=== PATIENT | male | born 1975 | race African-American/Black ===

== ENCOUNTER 2018-10-29 12:48 | Emergency (ER) | payer BC ==
[2018-10-29] MEDS ORDERED: Ketorolac 60 MG/2 ML SDV IM ONE (13:57)
--- NOTE | 2018-10-29 14:00 | EDM.PDOC ---
ED HPI GENERAL MEDICAL PROBLEM - General Chief Complaint: Lower Extremity Injury/Pain Stated Complaint: RT FOOT SWOLLEN Time Seen by Provider: 10/29/18 13:57 Source of Information: Reports: Patient - History of Present Illness INITIAL COMMENTS - FREE TEXT/NARRATIVE: HISTORY AND PHYSICAL: History of present illness: []Patient presents with right great toe pain 8 out of 10 injury or trauma Review of systems: As per history of present illness and below otherwise all systems reviewed and negative. Past medical history: As per history of present illness and as reviewed below otherwise noncontributory. Surgical history: As per history of present illness and as reviewed below otherwise noncontributory. Social history: No reported history of drug or alcohol abuse. Family history: As per history of present illness and as reviewed below otherwise noncontributory. Physical exam: HEENT: Atraumatic, normocephalic, pupils reactive, negative for conjunctival pallor or scleral icterus, mucous membranes moist, throat clear, neck supple, nontender, trachea midline. Lungs: Clear to auscultation, breath sounds equal bilaterally, chest nontender. Heart: S1S2, regular, negative for clicks, rubs, or JVD. Abdomen: Soft, nondistended, nontender. Negative for masses or hepatosplenomegaly. Negative for costovertebral tenderness. Pelvis: Stable nontender. Genitourinary: Deferred. Rectal: Deferred. Extremities: Atraumatic, negative for cords or calf pain. Neurovascular unremarkable. Neuro: Awake, alert, oriented. Cranial nerves II through XII unremarkable. Cerebellum unremarkable. Motor and sensory unremarkable throughout. Exam nonfocal. Diagnostics: [TBC uric acid Right foot 3 views ] Therapeutics: [ Ertl 60 IM cholcrys Indocin Impression: [ acute gout] Definitive disposition and diagnosis as appropriate pending reevaluation and review of above. R Great Toe Pain Score (Numeric/FACES): 8 - Related Data Allergies Allergy/AdvReac Type Severity Reaction Status Date / Time No Known Allergies Allergy Verified 10/29/18 12:58 Home Meds: Home Meds . [No Known Home Meds] 10/29/18 [History] Past Medical History - Past Health History Medical/Surgical History: Denies Medical/Surgical History HEENT History: Reports: None Cardiovascular History: Reports: Heart Murmur, Other (See Below) Other Cardiovascular History: as a child Respiratory History: Reports: Other (See Below) Other Respiratory History: pleurisy Gastrointestinal History: Reports: Other (See Below) Other Gastrointestinal History: hernia lower abd Psychiatric History: Reports: None - Infectious Disease History Infectious Disease History: Reports: None - Past Surgical History GI Surgical History: Reports: Hernia, Inguinal Social & Family History - Family History Family Medical History: Noncontributory Endocrine/Metabolic: Reports: Diabetes, type II - Tobacco Use Smoking Status *Q: Never Smoker - Caffeine Use Caffeine Use: Reports: None - Recreational Drug Use Recreational Drug Use: No Review of Systems - Review of Systems Review Of Systems: See Below ED EXAM, GENERAL - Physical Exam Exam: See Below Course - Vital Signs Last Recorded V/S: Last Vital Signs Temp 97.1 F 10/29/18 12:56 Pulse 90 10/29/18 12:56 Resp 16 10/29/18 12:56 BP 119/74 10/29/18 12:56 Pulse Ox 96 10/29/18 12:56 - Orders/Labs/Meds Orders: Active Orders 24 hr Category Date Time Status Foot Comp Min 3V Rt [CR] Stat Exams 10/29/18 12:50 Taken Ketorolac [Toradol] Med 10/29/18 13:57 Once 60 mg IM ONETIME ONE Labs: Laboratory Tests 10/29/18 10/29/18 Range/Units 13:04 13:04 WBC 6.26 (4.0-11.0) K/uL RBC 5.69 (4.50-5.90) M/uL Hgb 15.3 (13.0-17.0) g/dL Hct 45.8 (38.0-50.0) % MCV 80.5 (80.0-98.0) fL MCH 26.9 L (27.0-32.0) pg MCHC 33.4 (31.0-37.0) g/dL RDW Std Deviation 41.6 (28.0-62.0) fl RDW Coeff of Ortiz 14 (11.0-15.0) % Plt Count 300 (150-400) K/uL MPV 12.10 H (7.40-12.00) fL Neut % (Auto) 62.7 (48.0-80.0) % Lymph % (Auto) 22.5 (16.0-40.0) % Hart % (Auto) 10.7 (0.0-15.0) % Eos % (Auto) 3.8 (0.0-7.0) % Baso % (Auto) 0.3 (0.0-1.5) % Neut # (Auto) 3.9 (1.4-5.7) K/uL Lymph # (Auto) 1.4 (0.6-2.4) K/uL Hart # (Auto) 0.7 (0.0-0.8) K/uL Eos # (Auto) 0.2 (0.0-0.7) K/uL Baso # (Auto) 0.0 (0.0-0.1) K/uL Nucleated RBC % 0.0 /100WBC Nucleated RBCs # 0 K/uL Uric Acid 9.3 H (2.6-7.2) mg/dL Departure - Departure Time of Disposition: 13:59 Disposition: Home, Self-Care 01 Condition: Good Clinical Impression: Acute gout - Discharge Information Referrals: PCP,None [Primary Care Provider] - Additional Instructions: gout diet as discussed Medications as prescribed Return if symptoms persist or worsen Follow-up with primary care in 2 weeks [facility] [address] [place] [address] The following information is given to patients seen in the emergency department who are being discharged to home. This information is to outline your options for follow-up care. We provide all patients seen in our emergency department with a follow-up referral. The need for follow-up, as well as the timing and circumstances, are variable depending upon the specifics of your emergency department visit. If you don't have a primary care physician on staff, we will provide you with a referral. We always advise you to contact your personal physician following an emergency department visit to inform them of the circumstance of the visit and for follow-up with them and/or the need for any referrals to a consulting specialist. The emergency department will also refer you to a specialist when appropriate. This referral assures that you have the opportunity for follow-up care with a specialist. All of these measure are taken in an effort to provide you with optimal care, which includes your follow-up. Under all circumstances we always encourage you to contact your private physician who remains a resource for coordinating your care. When calling for follow-up care, please make the office aware that this follow-up is from your recent emergency room visit. If for any reason you are refused follow-up, please contact the [facility] emergency department at and asked to speak to the emergency department charge nurse. - My Orders Last 24 Hours: My Active Orders 10/29/18 12:50 Foot Comp Min 3V Rt [CR] Stat 10/29/18 13:57 Ketorolac [Toradol] 60 mg IM ONETIME ONE - Assessment/Plan Last 24 Hours: My Active Orders 10/29/18 12:50 Foot Comp Min 3V Rt [CR] Stat 10/29/18 13:57 Ketorolac [Toradol] 60 mg IM ONETIME ONE
--- NOTE | 2018-10-29 14:01 | CR ---
INDICATION: Pain TECHNIQUE: Three views right foot COMPARISON: None FINDINGS: Bones: Alignment is normal. No fractures. Dorsal and plantar calcaneal spurs. Joint spaces: Mild hallux valgus deformity great toe. Soft tissues: Soft tissue edema dorsal to the tarsal bones. IMPRESSION: Soft tissue edema dorsal to the metatarsal bones. Dorsal and plantar calcaneal spurs. Mild hallux valgus deformity great toe. Dictated by Michael Bernardo MD @ 10/29/2018 1:58:55 PM Dictated by: Michael Bernardo MD @ 10/29/2018 13:59:01 (Electronically Signed)
[2018-10-29 14:39] VITALS: BP 122/76
== END 2018-10-29 14:36 | disposition home or self-care (01) ==
LOC: MW.ED 12:48
DX: M10.9 Gout, unspecified (principal)
CPT/HCPCS: 36415; 73630; 84550; 85025; 96372; 99283; J1885